=== PATIENT | male | born 1975 | race Two or more races ===

== ENCOUNTER 2019-08-03 17:57 | Emergency (ER) | payer OTHER ==
[~2019-08-03] VITALS: Ht 167.6 cm; Wt 90.7 kg
--- NOTE | 2019-08-03 18:25 | NUR ---
DINORAH MEYERS WITH PATIENT FOR EVAL
--- NOTE | 2019-08-03 18:41 | NUR ---
Patient discharged to home in stable condition. Written and verbal after care instructions given. Patient verbalizes understanding of instruction and RX. vss. Ambulated with steady gait.
[2019-08-03 18:42] VITALS: BP 128/82
== END 2019-08-03 18:42 | disposition home or self-care (01) ==
LOC: ER 18:04
DX: K04.7 Periapical abscess without sinus (principal)